=== PATIENT | female | born 1955 ===

== ENCOUNTER 2025-01-27 09:04 | Outpatient (RCR) | payer MEDICARE, SELFPAY ==
--- NOTE | 2025-01-27 11:00 | OTOPEVDC ---
Assessment and note entered by Rodolfo Rangel, OTR/L, CHT Thank you for referring Steffi Gramajo to [facility].? An evaluation has been completed. No further treatment is needed. Assessment Status Evaluation Subjective Information Patient referred to our clinic for w/c evaluation. Current power chair is 5+ years old and in disrepair. Diagnoses include: Quadriplegia G82.50, Sequela of poliomyelitis B91, Pressure injury of right hip stage 1,RA, OA, HTN, LE edema, TIA. Please refer to 12 page seating/mobility evaluation for details. Reported Pain Level Additional Pain Score Comments Bilateral leg pain, constantly 6-7/10, can get up to 9/10 at times, gets down to 3/10 at best Assessment OT Clinical Summary Steffi Gramajo is unable to safely and independently ambulate household distances due to her current impairments of weakness, pain, LE joint contractures, decreased joint motion, and limited standing balance/tolerance. She has had 2 falls this year and demonstrates high fall risk due to her balance, strength, and ROM deficits, which also contributes to her inability to walk with an optimally fitted walker or cane. Steffi demonstrates significant functional mobility limitations that impairs her ability to safely participate in mobility-related ADLs. These limitations cannot be sufficiently resolved by the use an appropriately fitted cane or walker due to her balance, pain, contractures, and severe weakness. She is unable to functionally and safely propel a manual wheelchair due to UE ROM and strength deficits. She also requires tilt and recline features of a power wheelchair due to LE edema as well as requiring these features for pressure relief. Steffi is unable to complete adequate pressure relief from standing. A power wheelchair with power tilt, recline, AFP, and elevator function will significantly improve Steffi' s positioning, improve pressure relief, increase safety and independence with ADLs, reaching counter height during ADLs, increase safety with transfers, and decrease caregiver burden. Patient requires upgraded electronics to perform multiple seating functions with her power wheelchair due to paraplegia, weakness, contractures, balance deficits, and pain. Patient is willing and able to use recommended equipment. Plan of Care OT Services Indicated No
== END 2025-01-27 12:43 | disposition home or self-care (01) ==
LOC: ANHOT 09:04
PROVIDERS: PCP Physician Assistant Medical; Visit Provider Physician Assistant Medical
DX: G82.50 Quadriplegia, unspecified (principal); B91 Sequelae of poliomyelitis
CPT/HCPCS: 97167